=== PATIENT | female | born 1995 | race African-American/Black ===

== ENCOUNTER 2016-09-24 10:06 | Emergency (ER) | payer OTHER ==
[~2016-09-24] VITALS: Ht 162.6 cm; Wt 131.9 kg
[~2016-09-24 10:06] MED LIST: ANAPROX DS550 M1 PO; BACTRIM,SEPT1 TABLET PO; Motrin PO; NOHOMEMEDS; NORCO 5/3251 TABLET PO; Percocet 5/325,Endoc PO; ZANTAC150 MG PO
[2016-09-24 10:18] VITALS: BP 142/64
[2016-09-24] MEDS ORDERED: NORCO 5/3251 TABLET PO (11:15)
== END 2016-09-24 11:41 | disposition home or self-care (01) ==
LOC: EME 10:06
DX: K08.89 Other specified disorders of teeth and supporting structures (principal); K03.81 Cracked tooth
CPT/HCPCS: 99281; 99282

== ENCOUNTER 2016-09-24 19:18 | Emergency (ER) | payer OTHER ==
[~2016-09-24] VITALS: Ht 162.6 cm; Wt 131.0 kg
[2016-09-24 20:17] VITALS: BP 128/80
== END 2016-09-24 20:17 | disposition home or self-care (01) ==
LOC: EME 19:18 → EXP 19:18
DX: K08.89 Other specified disorders of teeth and supporting structures (principal); K03.81 Cracked tooth; K02.9 Dental caries, unspecified; R60.0 Localized edema; F17.200 Nicotine dependence, unspecified, uncomplicated
CPT/HCPCS: 99281; 99284; J2270

== ENCOUNTER 2016-11-18 10:03 | Emergency (ER) | payer OTHER ==
[~2016-11-18] VITALS: Ht 162.6 cm; Wt 129.3 kg
[2016-11-18] MEDS ORDERED: VENTOLIN HFA18 GM IH (11:25)
[2016-11-18] MEDS ORDERED: TESSALON PERLE100 MG PO (11:25)
[2016-11-18] MEDS ORDERED: PREDNISONE20 MG PO (11:25)
[2016-11-18 11:45] VITALS: BP 121/76
[2016-11-19] MEDS ORDERED: AMOXICILLIN875 MG PO (16:48)
[2016-11-19] MEDS ORDERED: MOTRIN800 MG PO (16:48)
== END 2016-11-18 11:45 | disposition home or self-care (01) ==
LOC: EME 10:03
DX: J40 Bronchitis, not specified as acute or chronic (principal)
CPT/HCPCS: 99281; 99283

== ENCOUNTER 2016-11-19 15:41 | Emergency (ER) | payer OTHER ==
[~2016-11-19] VITALS: Ht 162.6 cm; Wt 129.7 kg
[~2016-11-19 15:41] MED LIST changes: +PREDNISONE20 MG PO; +TESSALON PERLE100 MG PO; +VENTOLIN HFA18 GM IH
[2016-11-19] MEDS ORDERED: MOTRIN800 MG PO (16:48)
[2016-11-19] MEDS ORDERED: AMOXICILLIN875 MG PO (16:48)
[2016-11-19 17:12] VITALS: BP 141/83
== END 2016-11-19 17:13 | disposition home or self-care (01) ==
LOC: EME 15:41
DX: K08.89 Other specified disorders of teeth and supporting structures (principal); F17.200 Nicotine dependence, unspecified, uncomplicated
CPT/HCPCS: 99281; 99283